=== PATIENT | male | born 1980 | race African-American/Black ===

== ENCOUNTER 2023-07-11 11:23 | Emergency (ER) | payer SELFPAY ==
[~2023-07-11] VITALS: Ht 177.8 cm; Wt 73.0 kg
[~2023-07-11 11:23] MED LIST: METR-167 PO; PANT40TA51 PO; TOPUD PO
[2023-07-11 11:26] VITALS: O2SAT 99
[2023-07-11 12:01] LABS: BASOPHILS % 0.7 % (0.0-2.0); EOSINOPHILS % 1.3 % (0.0-5.0); HEMATOCRIT. 40.9 % (42.0-52.0); LYMPHOCYTES % 23.1 % (20.0-50.0); MEAN CORPUSCULAR HEMOGLOBIN 33.1 pg (28.0-32.0); MEAN CORPUSCULAR HGB CONC 34.3 g/dL (31.0-37.0); MEAN CORPUSCULAR VOLUME 96.3 fL (80.0-94.0); MEAN PLATELET VOLUME 9.7 fl (7.4-10.4); MONOCYTES % 4.7 % (2.0-8.0); NEUTROPHILS % 70.2 % (40.0-76.0); PLATELET 217 x1000/uL (130-400); RED BLOOD CELL COUNT 4.25 mill/uL (4.7-6.1); RED CELL DISTRIBUTION WIDTH 12.8 % (11.6-14.6); WHITE BLOOD COUNT 6.5 x1000/uL (4.5-11.0)
[2023-07-11] MEDS ORDERED: DICYCLOMINE 10 MG/5 ML ORAL SYR PO STA (12:14)
[2023-07-11] MEDS: KETOROLAC 30MG/ML VIAL IV STA (12:14)
[2023-07-11] MEDS: MAGNESIUM/ALUMINUM HYDROXIDE/SIMETHICONE 30ML UDC PO STA (12:14)
[2023-07-11] MEDS: ONDANSETRON HCL 4MG/2ML INJ IV STA (12:14)
[2023-07-11 12:15] VITALS: TEMP 97.7
[2023-07-11] MEDS: SODIUM CHLORIDE 0.9% 1,000 ML IV ONE (12:15)
[2023-07-11 12:18] LABS: ALANINE AMINOTRANSFERASE 15 IU/L (10-49); ASPARTATE AMINOTRANSFERASE 20 IU/L (<34); BILIRUBIN TOTAL 0.8 mg/dL (0.1-1.0); CALCIUM 9.8 mg/dL (8.7-10.4); CARBON DIOXIDE 29 mEq/L (21-32); CHLORIDE 101 mEq/L (98-107); CREATININE 1.3 mg/dL (0.6-1.3); GLUCOSE 104 mg/dL (70-105); POTASSIUM 3.6 mEq/L (3.5-5.1); SODIUM 139 mEq/L (136-145); UREA NITROGEN BLOOD 14 mg/dL (9-23)
[2023-07-11 12:25] LABS: PROTEIN TOTAL 9.3 g/dL (6.0-8.3)
[2023-07-11] MEDS: DICYCLOMINE HCL 10MG CAPSULE PO SCH (13:23)
[2023-07-11] MEDS: FAMOTIDINE 20MG/2ML VIAL IV ONE (15:32)
[2023-07-11] MEDS ORDERED: FAMO-135 MT (16:44)
[2023-07-11 17:24] VITALS: BP 118/83; PULSE 78; RESP 15
== END 2023-07-11 17:29 | disposition home or self-care (01) ==
LOC: ER 11:23
DX: K29.70 Gastritis, unspecified, without bleeding (principal); F19.90 Other psychoactive substance use, unspecified, uncomplicated
CPT/HCPCS: 80053; 83605; 83690; 85025; 36415; 74176; 96361; 96374; 96375; 99285; J3490; J1885; J2405; J7030; Z7610 ×2

== ENCOUNTER 2023-08-27 14:24 | Emergency (ER) | payer MEDICAID ==
[~2023-08-27] VITALS: Ht 180.3 cm; Wt 79.0 kg
[~2023-08-27 14:24] MED LIST changes: +FAMO-135 MT
[2023-08-27 14:49] VITALS: O2SAT 98
[2023-08-27 15:18] LABS: BASOPHILS % 1.2 % (0.0-2.0); DIFFERENTIAL COMMENT 0; EOSINOPHILS % 5.9 % (0.0-5.0); HEMOGLOBIN. 13.6 g/dL (14.0-18.0); LYMPHOCYTES % 48.9 % (20.0-50.0); MEAN CORPUSCULAR HEMOGLOBIN 32.6 pg (28.0-32.0); MEAN CORPUSCULAR VOLUME 95.8 fL (80.0-94.0); MEAN PLATELET VOLUME 10.4 fl (7.4-10.4); MONOCYTES % 5.3 % (2.0-8.0); NEUTROPHILS % 38.7 % (40.0-76.0); PLATELET 193 x1000/uL (130-400); RED BLOOD CELL COUNT 4.18 mill/uL (4.7-6.1); RED CELL DISTRIBUTION WIDTH 12.5 % (11.6-14.6); WHITE BLOOD COUNT 4.6 x1000/uL (4.5-11.0)
[2023-08-27 15:23] LABS: CARBON DIOXIDE 30 mEq/L (21-32); CHLORIDE 104 mEq/L (98-107); POTASSIUM 3.8 mEq/L (3.5-5.1); SODIUM 139 mEq/L (136-145)
[2023-08-27 15:24] LABS: CALCIUM 9.6 mg/dL (8.7-10.4)
[2023-08-27 15:28] LABS: CREATININE 1.1 mg/dL (0.6-1.3)
[2023-08-27 15:29] LABS: GLUCOSE 89 mg/dL (70-105); UREA NITROGEN BLOOD 9 mg/dL (9-23)
[2023-08-27 15:30] LABS: ALANINE AMINOTRANSFERASE 7 IU/L (10-49); ASPARTATE AMINOTRANSFERASE 16 IU/L (<34)
[2023-08-27 15:31] LABS: ALBUMIN 4.2 g/dL (3.2-4.8); BILIRUBIN TOTAL 0.6 mg/dL (0.1-1.0); PROTEIN TOTAL 7.8 g/dL (6.0-8.3)
[2023-08-27] MEDS: PANTOPRAZOLE 40MG DR TABLET PO ONE (15:40)
[2023-08-27] MEDS: ONDANSETRON 4MG ODT PO ONE (15:40)
[2023-08-27 16:19] LABS: CLARITY URINE CLEAR (CLEAR); COLOR URINE DARK YELLOW (YELLOW); GLUCOSE URINE NEGATIVE (NEGATIVE); KETONES URINE 1+ (NEGATIVE); LEUKOCYTE ESTERASE URINE TRACE (NEGATIVE); NITRITE URINE NEGATIVE (NEGATIVE); OCCULT BLOOD URINE NEGATIVE (NEGATIVE); PH URINE 6.5 (4.5-8.0); PROTEIN URINE 1+ (NEGATIVE); SPECIFIC GRAVITY URINE 1.029 (1.005-1.030)
[2023-08-27 16:33] LABS: BACTERIA URINE 1+; RBC URINE 0-2 /hpf (0-2); YEAST URINE NONE SEEN
[2023-08-27 16:36] LABS: SQUAMOUS EPITHELIAL CELL URINE 2+ /lpf (RARE/1+)
[2023-08-27 18:00] VITALS: BP 122/75; PULSE 68; RESP 17; TEMP 98
[2023-08-27] MEDS ORDERED: OMEP20CA14 MT (18:07)
== END 2023-08-27 21:27 | disposition home or self-care (01) ==
LOC: ER 14:46
DX: R10.9 Unspecified abdominal pain (principal); R11.10 Vomiting, unspecified; Z87.11 Personal history of peptic ulcer disease
CPT/HCPCS: 99283; 80053; 81003; 83690; 85025; 36415; Q0162

== ENCOUNTER 2023-10-10 19:31 | Emergency (ER) | payer MEDICAID ==
[~2023-10-10] VITALS: Ht 185.4 cm; Wt 73.0 kg
[~2023-10-10 19:31] MED LIST changes: +OMEP20CA14 MT
[2023-10-10 19:34] VITALS: BP 127/96; PULSE 86; RESP 14; TEMP 98.3; O2SAT 99
[2023-10-10 20:42] LABS: BASOPHILS % 0.8 % (0.0-2.0); EOSINOPHILS % 1.6 % (0.0-5.0); HEMATOCRIT. 45.6 % (42.0-52.0); HEMOGLOBIN. 15.2 g/dL (14.0-18.0); LYMPHOCYTES % 24.7 % (20.0-50.0); MEAN CORPUSCULAR HEMOGLOBIN 32.6 pg (28.0-32.0); MEAN CORPUSCULAR HGB CONC 33.4 g/dL (31.0-37.0); MEAN CORPUSCULAR VOLUME 97.6 fL (80.0-94.0); MEAN PLATELET VOLUME 10.9 fl (7.4-10.4); MONOCYTES % 4.2 % (2.0-8.0); NEUTROPHILS % 68.7 % (40.0-76.0); PLATELET 164 x1000/uL (130-400); RED BLOOD CELL COUNT 4.67 mill/uL (4.7-6.1); RED CELL DISTRIBUTION WIDTH 13.4 % (11.6-14.6); WHITE BLOOD COUNT 5.7 x1000/uL (4.5-11.0)
[2023-10-10 20:51] LABS: CHLORIDE 101 mEq/L (98-107); POTASSIUM 3.4 mEq/L (3.5-5.1); SODIUM 142 mEq/L (136-145)
[2023-10-10 20:52] LABS: CALCIUM 10.3 mg/dL (8.7-10.4); CARBON DIOXIDE 32 mEq/L (21-32)
[2023-10-10 20:57] LABS: CREATININE 1.3 mg/dL (0.6-1.3); GLUCOSE 87 mg/dL (70-105); UREA NITROGEN BLOOD 9 mg/dL (9-23)
[2023-10-10 20:59] LABS: ALANINE AMINOTRANSFERASE 18 IU/L (10-49); ALBUMIN 5.2 g/dL (3.2-4.8); ASPARTATE AMINOTRANSFERASE 23 IU/L (<34); BILIRUBIN DIRECT 0.2 mg/dL (<=3.0); BILIRUBIN TOTAL 0.7 mg/dL (0.1-1.0); PROTEIN TOTAL 9.1 g/dL (6.0-8.3)
[2023-10-11] MEDS: ONDANSETRON 4MG ODT PO ONE (00:12)
[2023-10-11] MEDS: KETOROLAC 15MG/ML VIAL IM ONE (00:13)
[2023-10-11 00:28] LABS: CLARITY URINE CLOUDY (CLEAR); COLOR URINE DARK YELLOW (YELLOW); GLUCOSE URINE NEGATIVE (NEGATIVE); KETONES URINE 1+ (NEGATIVE); LEUKOCYTE ESTERASE URINE 1+ (NEGATIVE); NITRITE URINE NEGATIVE (NEGATIVE); OCCULT BLOOD URINE NEGATIVE (NEGATIVE); PH URINE 7.5 (4.5-8.0); PROTEIN URINE 1+ (NEGATIVE); SPECIFIC GRAVITY URINE 1.029 (1.005-1.030)
[2023-10-11 01:26] LABS: BACTERIA URINE 1+; RBC URINE NONE SEEN /hpf (0-2); SQUAMOUS EPITHELIAL CELL URINE FEW /lpf (RARE/1+)
== END 2023-10-11 01:06 | disposition left against medical advice (07) ==
LOC: ER 19:31
DX: R52 Pain, unspecified (principal); Z53.21 Procedure and treatment not carried out due to patient leaving prior to being seen by health care provider
CPT/HCPCS: 80076; 80048; 83690; 85025; 36415; 93005; 81003; Q0162; J1885; Z7610

== ENCOUNTER 2024-04-04 15:10 | Emergency (ER) | payer MEDICAID ==
[~2024-04-04] VITALS: Ht 175.3 cm; Wt 66.0 kg
[~2024-04-04 15:10] MED LIST changes: +OMEP40CA20 MT
[2024-04-04 15:30] VITALS: O2SAT 100
[2024-04-04 16:32] LABS: BASOPHILS % 1.1 % (0.0-2.0); EOSINOPHILS % 1.6 % (0.0-5.0); HEMATOCRIT. 36.9 % (42.0-52.0); HEMOGLOBIN. 12.4 g/dL (14.0-18.0); LYMPHOCYTES % 28.2 % (20.0-50.0); MEAN CORPUSCULAR HEMOGLOBIN 32.4 pg (28.0-32.0); MEAN CORPUSCULAR HGB CONC 33.6 g/dL (31.0-37.0); MEAN CORPUSCULAR VOLUME 96.4 fL (80.0-94.0); MEAN PLATELET VOLUME 10.2 fl (7.4-10.4); MONOCYTES % 3.9 % (2.0-8.0); NEUTROPHILS % 65.2 % (40.0-76.0); PLATELET 221 x1000/uL (130-400); RED BLOOD CELL COUNT 3.82 mill/uL (4.7-6.1); RED CELL DISTRIBUTION WIDTH 13.3 % (11.6-14.6); WHITE BLOOD COUNT 6.6 x1000/uL (4.5-11.0)
[2024-04-04 16:51] LABS: ALANINE AMINOTRANSFERASE 8 IU/L (10-49); ALBUMIN 4.9 g/dL (3.2-4.8); ASPARTATE AMINOTRANSFERASE 16 IU/L (<34); BILIRUBIN DIRECT 0.1 mg/dL (<=3.0)
[2024-04-04 16:52] LABS: BILIRUBIN TOTAL 0.6 mg/dL (0.1-1.0)
[2024-04-04 16:54] LABS: ETHANOL BLOOD < 10 mg/dL (<10); PROTEIN TOTAL 8.9 g/dL (6.0-8.3)
[2024-04-04 17:22] LABS: CHLORIDE 100 mEq/L (98-107); SODIUM 141 mEq/L (136-145)
[2024-04-04 17:23] LABS: CALCIUM 10.4 mg/dL (8.7-10.4); CARBON DIOXIDE 33 mEq/L (21-32)
[2024-04-04 17:28] LABS: CREATININE 1.4 mg/dL (0.6-1.3); GLUCOSE 97 mg/dL (70-105); UREA NITROGEN BLOOD 14 mg/dL (9-23)
[2024-04-04 17:38] LABS: TROPONIN I HIGH SENSITIVITY < 4 ng/L (3.0-53)
[2024-04-04] MEDS: SODIUM CHLORIDE 0.9% 1,000 ML IV ONE (17:54)
[2024-04-04] MEDS: ONDANSETRON HCL 4MG/2ML INJ IV ONE (17:58)
[2024-04-04] MEDS: PANTOPRAZOLE SODIUM 40 MG/VIAL IV SCH (18:01)
[2024-04-04] MEDS ORDERED: TOPUD PO (20:09)
[2024-04-04] MEDS ORDERED: PANT40TA51 PO (20:09)
[2024-04-04] MEDS ORDERED: ONDA4TAB50 MT (20:09)
[2024-04-04 20:37] VITALS: BP 101/78; PULSE 70; RESP 19; TEMP 36.50292; O2SAT 99
== END 2024-04-04 20:40 | disposition home or self-care (01) ==
LOC: ER 15:12
DX: R10.9 Unspecified abdominal pain (principal); Z79.899 Other long term (current) drug therapy; Z98.890 Other specified postprocedural states
CPT/HCPCS: 80076; 80048; 80320; 83690; 85025; 85610; 86850; 86900; 86901; 84484; 36415; 71045; 93005; 96365; 96375; 99285; J2405; J2470; J7030; Z7610 ×2; G0480